=== PATIENT | male | born 1945 | race Caucasian/White ===

== ENCOUNTER 2020-06-30 15:58 | Emergency (ER) | payer OTHER ==
[2020-06-30] MEDS ORDERED: ATROPINE SULFATE 1 MG/10 ML DISP.SYRIN ONE (16:13)
[2020-06-30] MEDS ORDERED: CALCIUM CHLORIDE 1 GM/10 ML *DISP.SYRIN IVPUSH ONE (16:17)
[2020-06-30] MEDS ORDERED: EPINEPHrine INTRACARD 1:10,000 1 MG/10 ML DISP.SYRIN ICARD ONE ×3 (16:17)
[2020-06-30] MEDS ORDERED: SODIUM BICARBONATE 8.4% 50 MEQ/50 ML DISP.SYRIN IVPUSH ONE (16:18)
[2020-06-30] MEDS ORDERED: INSULIN REGULAR HUMAN 100 UNITS/ML *VIAL IVPUSH ONE (16:18)
[2020-06-30] MEDS ORDERED: NOREPINEPHRINE BITARTRATE 8,000 MCG in DEXTROSE 5%-WATER - 492 ML IV SCH (16:30)
[2020-06-30 16:36] VITALS: BP 0/0; PULSE 60; BMI 33.1
--- NOTE | 2020-06-30 16:56 | PDOC ---
History of Present Illness - General Chief Complaint: Cardiac Arrest Stated Complaint: CARDIAC ARREST Time Seen by Provider: 06/30/20 16:18 Past History - Medical History Allergies/Adverse Reactions: Allergies Allergy/AdvReac Type Severity Reaction Status Date / Time No Known Allergies Allergy Verified 06/30/20 16:32 Cardiac Disorders: Yes (atrial fibrillation) COPD: No CHF: Yes Diabetes: Yes GI Disorders: Yes Psychiatric Problems: Yes (anxiety) - Psycho-Social/Smoking History Smoking History: Never smoked Have you smoked in the past 12 months: No Information on smoking cessation initiated: No *Physical Exam - Vital Signs Last Vital Signs Temp Pulse Resp BP Pulse Ox 60 12 0/0 L 100 06/30/20 15:58 06/30/20 15:58 06/30/20 15:58 06/30/20 15:58 ED Treatment Course - ADDITIONAL ORDERS Additional order review: Laboratory Results 06/30/20 16:11 POC Glucometer 357 06/30/20 16:11 POC Glucometer 357 Medical Decision Making - Critical Care Time Total Critical Care Time (minutes): 45 Critical Care Statement: The care of this patient involved high complexity decision making to prevent further life threatening deterioration of the patient's condition and/or to evaluate & treat vital organ system(s) failure or risk of failure. 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 LKN 1300. EMS called at 1435 because pt found unresponsive and required suctioning of trach, possibly of blood. Also noted blood in urine. When EMS arrived, CPR in progress and bagging through trach. EMS gave 2 epi, 1 calcium, 1 bicarb, 4 atropine, ROSC @1455. Bradycardic, hypotensive, started pacing at 1505. Full code ROS: unable to assess 2/2 unresponsiveness PE: Gen: unresponsive, obtunded, pupils fixed and dilated, pacer on but not connected, BVM through trach HEENT: Pupils fixed dilated. NCAT. Trach in place without secretions or blood or e/o obstruction, BVM attached. CV: Pulses ~20bpm, PULM: BVM, BL and equal breath sounds present with BVM ABD: soft, ND, G-tube in place with coffee-ground contents : an catheter in place with hematuria BACK: No e/o trauma. MSK: No bony deformities. Faint pulses in all extremities. NEURO: Unresponsive. Pupils fixed dilated. No spontaneous activity or motion. EXTREMITIES: No cyanosis. No clubbing. No edema. RLE IO in place. PSYCH: Unable to assess SKIN: Cool, pale, no rashes or lesions or e/o trauma noted MDM: Pt seen immediately upon arrival. Airway: trach in place, no blood or secretions or e/o obstruction Breathing: BVM, BL and equal breath sounds present with BVM, POCUS lungs b/l lung sliding present and no B lines Circulation: Distal pulses present ~2bpm. Hematuria in catheter. No other overt signs of bleeding. Hypotensive. D: Unresponsive. Pupils fixed and dilated. GCS 3 Exposure: Pt exposed. IO in RLE. G-tube in abdomen. An catheter in place with hematuria. G-tube in place with coffee-ground contents. Trach in place. Splint on R arm. Pt initially sinus bradycardia ~20bpm, not being paced, within a few minutes returned to asystole. CPR begun at 1552. See rescuscitation record for timing. Given 4 rounds of epi, 1 sodium bicarb, 1 Mg, and calcium. Pulses returned but bradycardic 10-20, most likely from multiple epinephrine doses. -Atropine 1g x2 -Pacer attempted but no capture obtained. BGM 357 -10 U insulin CXR: bilateral infiltrates EKG attempted but only pacer seen, no capture. Due to lack of capture, stopped pacer and found pt remained in asystole, no pulses. 1 additional round of CPR and epi. Pt remains asystolic. No pulses, no organized cardiac activity on POCUS echo. Called Time of at 1621 Called Annamarie Hernandez and informed of at 1640. Spoke with daughter - family on way from [facility] ~1hr away. 06/30/20 17:00 Spoke with [place] - does not meet criteria for [facility] case Release number [id number] Pattern Hand Chan Discharge - Discharge Information Problems reviewed: Yes Clinical Impression/Diagnosis: Cardiac arrest, Bradycardia, Hyperglycemia Condition: Disposition: - Admission No - Follow up/Referral Referrals: Vazquez Johns MD [Primary Care Provider] - - Patient Discharge Instructions - Post Discharge Activity
[2020-06-30] MEDS ORDERED: ATROPINE SULFATE 1 MG/10 ML DISP.SYRIN IVPUSH ONE (17:00)
--- NOTE | 2020-06-30 17:03 | PDOC ---
Attending Attestation - Resident Resident Name: JosiecameliaGillian - ED Attending Attestation I have performed the following: I have examined & evaluated the patient, The case was reviewed & discussed with the resident, I agree w/resident's findings & plan - HPI HPI: 06/30/20 16:58 74 YOM with h/o HTN, HLD, DM2, Afib on Pradaxa, recnet right arm fx, presenting from [facility] with unresponsiveness last normal 1pm. when RN/staff went to suction him, he was unresponsive/lethargic, EMS called, found him in asystole at approx 235-240pm, started cpr x 15 minutes, with 1mg epi x2, calcium, bicarb, atropine 4mg. rosc achieved at 305pm, started cardiac pacing information by EMS at the bedside, though timing appears discordant. trach in place full code status. - Physicial Exam PE: 06/30/20 17:01 General: obtunded, unresponsive HEENT: NCAT, pupils fixed and dilated b/l Neck: neck supple Resp: lungs clear. trach in place CVS: weak/thready pulses Abdomen: soft, obese; G tube in place : an in place MSK: CARDOSO x0 Extremities: very dry, cool and pale; right IO in place; RUE in splint. Neuro: obtunded, unresponsive. pupils nonreactive Skin: cool, dry, pallor 06/30/20 17:06 06/30/20 17:11 - Critical Care Time Total Critical Care Time: 45 (cardiac arrest) Critical Care Statement: The care of this patient involved high complexity decision making to prevent further life threatening deterioration of the patient's condition and/or to evaluate & treat vital organ system(s) failure or risk of failure. - Medical Decision Making 06/30/20 17:03 Vital Signs Temp Pulse Resp BP Pulse Ox 60 14 0/0 L 100 06/30/20 15:58 06/30/20 16:33 06/30/20 15:58 06/30/20 15:58 pt came in extremis IO access in right tibia. airway ok - trach in place, b/l breath sounds, poor circulation. sinus lizzie on monitor, then asystole ACLS reinitiated 352pm ROSC achieved, but then went into severe bradycardia and asystole again. ACLS performed TC pacing for severe bradycardia. atropine given mag, calcium chloride, epinephrine x multiple doses hyperglycemic on FS check 330s. given insulin additionally TOD called at 421pm, with pocus echo done , no pericardial effusion; no organized myocardial contraction prior to last pulse check. incredible amount of stasis and no forward flow. 06/30/20 17:06 [facility] declined the case Release number [id number] [employer] Coordinator Chan Discharge - Discharge Information Problems reviewed: Yes Clinical Impression/Diagnosis: Cardiac arrest, Bradycardia, Hyperglycemia Condition: Disposition: - Follow up/Referral Referrals: Vazquez Johns MD [Primary Care Provider] - - Patient Discharge Instructions - Post Discharge Activity
== END 2020-06-30 16:25 | disposition expired ==
LOC: JER 15:58
DX: I46.9 Cardiac arrest, cause unspecified (principal)
CPT/HCPCS: 71045-TC-FY; 82962; 93308; 99291